=== PATIENT | female | born 2000 | race Hispanic/Latino ===

== ENCOUNTER 2024-05-19 12:05 | Inpatient (IN) | payer OTHER ==
[~2024-05-19] VITALS: Ht 154.9 cm; Wt 68.9 kg
--- NOTE | ~2024-05-19 | OR ---
[facility] [address] [place], [place] [address] Draft DATE OF OPERATION: 05/20/2024 SURGEON: Siomara Varghese MD TRACTOR OPERATOR: Edgar PREOPERATIVE DIAGNOSIS: Term , previous section. Risks reducing salpingectomy desired. POSTOPERATIVE DIAGNOSIS: Term , previous section. Risks reducing salpingectomy desired. PROCEDURE: Repeat section with lower segment transverse uterine incision with bilateral salpingectomy. ANESTHESIA: Spinal. ESTIMATED BLOOD LOSS: 600 mL. DRAINS: Hernandez catheter. INDICATIONS AND FINDINGS: The patient is a 24-year-old female 3, para 1, SAB 1, who was admitted at 39 weeks for repeat section. She desired risk reducing salpingectomy and understood this will make her permanently sterile. At the time of surgery, a little boy was delivered via lower segment transverse uterine incision with Apgars of 9 and 9 and weight of 6 pounds 14 ounces. He was in the LOT position. Uterus, tubes, ovaries, and placenta were otherwise normal. DESCRIPTION OF PROCEDURE: The patient was prepped and draped in the supine position. An incision was made through the prior scar and carried down through the fascia. The incision was extended laterally. The inferior and superior fascial flaps were then created. The peritoneum was opened sharply and the incision extended bluntly. The Hari retractor was placed. The uterine incision was made at the upper aspect of the peritoneal reflection. The PATIENT NAME: BARI SADLER OPERATIVE REPORT DATE OF : 00 REPORT #: [id number] PHYSICIAN: SIOMARA VARGHESE MD PCP: NO PRIMARY CARE PHYSICIAN REPORT IS CONFIDENTIAL AND NOT TO BE RELEASED WITHOUT AUTHORIZATION [facility] [address] [place], [place] [address] Draft incision was extended bluntly. Artificial rupture of membranes was done with clear fluid seen. The baby was delivered with the above findings and handed out to the pediatric staff in attendance. The placenta was expressed and appeared normal. The uterus was explored with a lap tape assuring no remaining fragments. The edges of the incision were identified and the uterus was closed in 2 layers using 0 Monocryl. The first layer was a running locking stitch and the 2nd was a vertical imbricating stitch. An additional suture was required near the patient's right angle for control of bleeding. This incision did appear to be hemostatic. Pressure was applied to this area and the patient's right tube was identified and grasped with [place] clamps. Using the hand-held LigaSure device, the mesosalpinx was serially coagulated and divided from the fimbriated end to the cornu and excised. The same procedure was carried out on the patient's left side. Inspection of these areas showed good hemostasis. The incision was again visualized and good hemostasis was noted. The Hari was removed and the peritoneum identified. The peritoneum was closed with a running suture of 3-0 Vicryl. The muscles were brought together with interrupted sutures of 0 Vicryl. Bleeding points on the fascia and muscles were controlled with cautery. Two sutures of 0 chromic were required for control of bleeding as well. This layer was irrigated, inspected and good hemostasis was noted. Because of the extensive raw area, however, Js was placed over the incision over the muscles to aid in hemostasis. The fascia was then closed from each angle to the midline with a running suture of 0 Vicryl. The subcu space was irrigated and the bleeding points controlled with cautery. Remaining Js was placed in this layer. The subcu was reapproximated with a running suture of 3-0 Vicryl. The skin was closed with jeannette. All sponge and needle counts were correct. She tolerated the procedure well and was taken to the recovery room in good condition. Siomara Varghese MD PJW/MODL /[id number] Copies: ~ PATIENT NAME: KLEVER HAYWOODBARI RIOS OPERATIVE REPORT DATE OF : 00 REPORT #: [id number] PHYSICIAN: SIOMARA VARGHESE MD PCP: NO PRIMARY CARE PHYSICIAN REPORT IS CONFIDENTIAL AND NOT TO BE RELEASED WITHOUT AUTHORIZATION
[2024-05-20] MEDS ORDERED: LACTATED RINGER'S 1,000 ML IV SCH ×2 (05:30→08:37)
[2024-05-20] MEDS ORDERED: LACTATED RINGER'S 2,000 ML IV PRN (05:30)
[2024-05-20 06:08] VITALS: BP 131/91
[2024-05-20] MEDS ORDERED: LACTATED RINGER'S 1,000 ML IV PRN (06:30)
[2024-05-20] MEDS ORDERED: SOD+POT BICARB/CITRIC ACID 2 EA TABLET.EFF PO ONE (06:30)
[2024-05-20 06:38] LABS: HEMATOCRIT 30.9 % (35.0-50.0); HEMOGLOBIN 10.1 g/dL (12.0-18.0); MCH 26.3 (27-36); MCHC 32.6 g/dl (30-36); MCV 80.7 fl (81-99); RBC 3.83 M/ul (4.3-5.7); RDW 15.5 (10.5-15.0)
[2024-05-20] MEDS ORDERED: MORPHINE SULFATE 1 MG/ML VIAL ONE (06:38)
[2024-05-20] MEDS ORDERED: fentaNYL citrate 100 MCG/2 ML VIAL ONE (06:38)
[2024-05-20] MEDS ORDERED: ondansetron HCL 4 MG/2 ML VIAL ONE (06:38)
[2024-05-20] MEDS ORDERED: BUPIVACAINE 0.75% IN DEXTROSE 2 ML AMP ONE (06:38)
[2024-05-20] MEDS ORDERED: LIDOCAINE HCL 2% 5 ML SDV ONE (06:38)
[2024-05-20] MEDS ORDERED: OXYTOCIN 10 UNITS/ML VIAL ONE ×3 (06:38→08:17)
[2024-05-20] MEDS ORDERED: CEFAZOLIN SODIUM 2 GM/20 ML SYR ONE (07:11)
[2024-05-20 07:12] LABS: ABO O; ANTIBODY SCREEN NEGATIVE; RH POSITIVE
[2024-05-20] MEDS ORDERED: DEXAMETHASONE SOD PHOS 4 MG/ML VIAL ONE ×2 (07:32)
[2024-05-20] MEDS ORDERED: Ropivacaine HCl 0.5% 30 ML VIAL ONE (07:32)
[2024-05-20] MEDS ORDERED: LACTATED RINGER'S 1,000 ML IV ONE ×2 (07:33→08:19)
[2024-05-20] MEDS ORDERED: SODIUM CHLORIDE 0.9% 20 ML IV ONE (07:33)
[2024-05-20] MEDS ORDERED: HYDROmorphone HCL 1 MG/ML SYR IV PRN (07:45)
[2024-05-20] MEDS ORDERED: ondansetron HCL 4 MG/2 ML VIAL IV PRN ×2 (07:45→08:45)
[2024-05-20] MEDS ORDERED: KETOROLAC TROMETHAMINE 30 MG/ML VIAL IV PRN (07:45)
[2024-05-20] MEDS ORDERED: PROCHLORPERAZINE EDISYLATE 10 MG/2 ML VIAL IV PRN ×2 (07:45→08:45)
[2024-05-20] MEDS ORDERED: diphenhydrAMINE HCL 50 MG/ML VIAL IV PRN (07:45)
[2024-05-20] MEDS ORDERED: NALOXONE HCL 0.4 MG SYR IV PRN (07:45)
[2024-05-20] MEDS ORDERED: ACETAMINOPHEN 1,000 MG/100 ML VIAL ONE (07:57)
[2024-05-20] MEDS ORDERED: SCOPOLAMINE 1 MG/3 DAYS PATCH 1 EACH TDSY ONE (08:13)
[2024-05-20] MEDS ORDERED: diphenhydrAMINE HCL 50 MG/ML VIAL ONE (08:21)
[2024-05-20] MEDS ORDERED: OXYCODONE HCL 5 MG TAB PO PRN (08:45)
[2024-05-20] MEDS ORDERED: METOCLOPRAMIDE HCL 10 MG/2 ML SDV IV PRN (08:45)
[2024-05-20] MEDS ORDERED: KETOROLAC TROMETHAMINE 30 MG/ML VIAL IV SCH (08:45)
[2024-05-20] MEDS ORDERED: PROMETHAZINE HCL 25 MG TAB PO PRN (08:45)
[2024-05-20] MEDS ORDERED: bisacodyL 10 MG SUPP PR PRN (08:45)
[2024-05-20] MEDS ORDERED: OXYTOCIN/0.9 % SODIUM CHLORIDE 500 ML IV SCH (08:45)
[2024-05-20] MEDS ORDERED: PROMETHAZINE HCL 25 MG SUPP PR PRN (08:45)
[2024-05-20] MEDS ORDERED: SENNOSIDES/DOCUSATE 1 EA TAB PO SCH (09:00)
[2024-05-20 09:27] VITALS: BP 120/80
[2024-05-20 10:38] LABS: AMPHETAMINES, URINE NEGATIVE (NEGATIVE); BARBITURATES, URINE NEGATIVE (NEGATIVE); BENZODIAZEPINE, URINE NEGATIVE (NEGATIVE); BUPRENORPHINE, URINE NEGATIVE (NEGATIVE); CANNABINOID, URINE NEGATIVE (NEGATIVE); COCAINE, URINE NEGATIVE (NEGATIVE); ECSTASY, URINE NEGATIVE (NEGATIVE); FENTANYL, URINE NEGATIVE (NEGATIVE); METHADONE, URINE NEGATIVE (NEGATIVE); OPIATES, URINE NEGATIVE (NEGATIVE); OXYCODONE, URINE NEGATIVE (NEGATIVE); PHENCYCLIDINE, URINE NEGATIVE (NEGATIVE)
[2024-05-20] MEDS ORDERED: SIMETHICONE 125 MG TABLET CHEWABLE PO SCH (11:00)
[2024-05-20] MEDS ORDERED: ACETAMINOPHEN 500 MG TAB PO SCH (14:00)
--- NOTE | 2024-05-20 15:36 | NUR ---
05/20/24 1536 Diandra Wheeler 0850-PT ARRIVED TO [facility] ROOM 105 VIA BED, ON RA, AAO AND ABLE TO MAKE HER NEEDS KNOWN. PT DOES REPORT DROWSY FEELING. PT SIG OTHER AND SON IN ROOM UPON ARRIVAL. SATS STABLE AT 94% OR GREATER ON RA. RR APPEARS EVEN AND UNLABORED. 0855-FUNDAL CHECK COMPLETED. PT DENIES PAIN OR NAUSEA WHEN ASKED. PT WITH SCOPALAMIN PATCH IN PLACE BEHIND R EAR. 0900-SPINAL LEVEL CHECKED AND NOTED TO BE AT T6. PT WITH SOME GENERALIZED ITCHING, BUT REPORTS DECREASING. PT RECEIVED BENADRYL IN OR PER LIFE SKILLS COACH. PT WAS EXPLAINED TO THAT ITCHING IS LIKELY A SIDE EFFECT OF DURAMORPH USED IN EPIDURAL. PT VERBALIZED UNDERSTANDING. PT DOES NOT HAVE RASH OR URTICARIA PRESENT WITH THE ITCHING. 09-C RN IN ROOM AND ASKING IF PT WOULD LIKE TO HOLD HER BABY. PT DECLINED, REPORTING SHE WAS TOO TIRED. 0913-PT NOTED TO EASILY FALL ASLEEP AND IS SNORING AT THIS TIME. PULSE DECREASES INTO MID TO LOW 40'S AT TIMES. AND THEN BACK INTO MID TO UPPER 50'S. PT AROUSED AND DENIES CHEST PX, SOB, OR DIZZINESS. PULSE INCREASES INTO MID TO UPPER 50'S WHEN PT IS AWAKE. SATS STABLE ON RA ABOVE 94%. RR REMAINS EVEN AND UNLABORED. 0917-EDUARDO DRAINED OF 625ML OF PALE, CLR, YELLOW URINE. 0925-VS PER PTS BASELINE. SPINAL REMAINS AT T6, PT UNABLE TO MOVE LEGS OR WIGGLE TOES AT THIS TIME. FUNDAL CHECKS UNREMARKABLE. 09-REPORT GIVEN TO [facility] RN. PTS SIG OTHER AND BABY REMAIN IN ROOM WITH PT. CALL LIGHT WITHIN REACH. BILAT SIDERAILS IN PLACE. BED INLOW POSITION WITH WHEELS LOCKED.
[2024-05-21] MEDS ORDERED: LACTATED RINGER'S 1,000 ML IV SCH (05:00)
[2024-05-21 05:37] LABS: HEMATOCRIT 28.2 % (35.0-50.0); HEMOGLOBIN 9.1 g/dL (12.0-18.0); MCH 26.3 (27-36); MCHC 32.2 g/dl (30-36); MCV 81.8 fl (81-99); RBC 3.44 M/ul (4.3-5.7); RDW 15.3 (10.5-15.0)
[2024-05-21] MEDS ORDERED: SOD+POT BICARB/CITRIC ACID 2 EA TABLET.EFF PO SCH (07:00)
[2024-05-21] MEDS ORDERED: CEFAZOLIN SODIUM 2 GM/20 ML SYR IV SCH (07:00)
--- NOTE | 2024-05-21 09:01 | PR ---
[facility] [address] [facility] [place] [facility] [place], [place] [address] Signed PP Progress Notes Datetime Report Generated by CPN: 05/21/2024 09:01 SUBJECTIVE: [id number] Pain: Within Normal Limits Nausea/Vomiting: Denies Flatus: No Vital Signs: [id number] Vital Signs: Reviewed; Within Normal Limits EXAM: Ongoing Cardiovascular: Normal Respiratory: Normal Abdomen/Uterus: Abnormal Lochia: Normal Vulva/Perineum: Not Done Breasts: Not Done CVA Tenderness: Not Done Extremities: Normal Incision: Normal Progress: Abnormal Exam Comments: Abdomen with active BS. Fundus firm, NT @ U-1. H/H 9.1/28.2, WBC 15.7, plat 200k IMPRESSION/PLAN/PROCEDURES: [id number] Impression: Normal Progression Other Plans: ambulate, shower Progress Notes: Doing well. Will increase activity. Prob d/c in am. Signing Physician: Siomara Varghese MD Copies: ~ *Electronically Signed* 05/21/24900 SIOMARA VARGHESE MD PATIENT NAME: BARI SADLER PROGRESS NOTE DATE OF : 00 PHYSICIAN: SIOMARA VARGHESE MD RPT #: [id number] REPORT IS CONFIDENTIAL AND NOT TO BE RELEASED WITHOUT AUTHORIZATION
[2024-05-21] MEDS ORDERED: IBUPROFEN 800 MG TAB PO SCH (10:00)
--- NOTE | 2024-05-22 11:04 | PR ---
[facility] [address] [place], [place] [address] Signed PP Progress Notes Datetime Report Generated by BRIGHT: 05/22/2024 11:04 SUBJECTIVE: [id number] Pain: Within Normal Limits Nausea/Vomiting: Denies Flatus: Yes Bowel Movement: Yes Vital Signs: [id number] Vital Signs: Reviewed; Within Normal Limits EXAM: Ongoing Cardiovascular: Not Done Respiratory: Not Done Abdomen/Uterus: Normal Lochia: Normal Vulva/Perineum: Not Done Breasts: Not Done CVA Tenderness: Not Done Extremities: Normal Incision: Normal Progress: Normal Exam Comments: Abdomen with active BS. Fundus firm, NT @ U-1. H/H 9.1/28.2, WBC 15.7, plat 200k IMPRESSION/PLAN/PROCEDURES: [id number] Impression: Normal Progression Plan: Remove Wallace; Discharge Other Plans: ambulate, shower Procedures: None Progress Notes: S: 24 yo s/p RLTCS with bilateral salpingectomy. POD#3. Doing well. Denies REY, CP, SOB, F/C, N/V, RUQ pain, changes in vision, vaginal discharge. Tolerating regular diet, ambulating, voiding on own, pain controlled. O: AFVSS Abd: Soft, appropriately tender. Fundus firm and one finger breadth below umbilicus. Incision C/D/I and well healing without erythema or drainage. Musc: GUTIERREZ. No C/C/E. A/P: 24 yo s/p RLTCS with bilateral salpingectomy. POD#2. Doing well. Meeting all hospital milestones. Will discharge home today and remove jeannette prior to discharge. *Electronically Signed* 05/22/24 1104 KIRA HERNÁNDEZ MD PATIENT NAME: KLEVER URIOSTEGUIDONNAMELLY PROGRESS NOTE DATE OF : 00 PHYSICIAN: KIRA HERNÁNDEZ MD RPT #: [id number] REPORT IS CONFIDENTIAL AND NOT TO BE RELEASED WITHOUT AUTHORIZATION [address] [address] Signed Signing Physician: Kira Hernández MD Copies: ~ *Electronically Signed* 05/22/241103 KIRA HERNÁNDEZ MD PATIENT NAME: KLEVER URIOSTEGUIBARI PROGRESS NOTE DATE OF : 00 PHYSICIAN: KIRA HERNÁNDEZ MD RPT #: [id number] REPORT IS CONFIDENTIAL AND NOT TO BE RELEASED WITHOUT AUTHORIZATION
--- NOTE | 2024-05-24 14:54 | PATH ---
[facility] [address] [place], [place] [address] Signed SPECIMEN(S): A FALLOPIAN TUBES, BILATERAL SPECIMEN SOURCE: A. FALLOPIAN TUBES, BILATERAL CLINICAL HISTORY: Repeat . FINAL PATHOLOGIC DIAGNOSIS: Bilateral fallopian tubes: - Two segments of benign fimbriated oviduct. JVR:keiry MICROSCOPIC EXAMINATION: Histologic sections of all submitted blocks are examined by light microscopy. These findings, together with the gross examination, support the pathologic diagnosis. GROSS DESCRIPTION: The specimen, labeled and designated "Luis Saez, bilateral fallopian tubes," is received in formalin and consists of two red-brown edematous fimbriated fallopian tube segments (8.2 cm in length and ranging in diameter from 0.5 to 1.5 cm, and 9.5 cm in length and ranging in diameter from 0.5 to 1.3 cm). Both segments contain paratubal cysts (0.3 to 0.5 cm in greatest dimension). One of the segments is arbitrarily inked blue. Both segments are serially sectioned to reveal red-brown to levine soft cut surfaces. Trust Officer sections including the fimbriae entirely are submitted in cassette (A1-A2). VB (under the direct supervision of a pathologist) The Gross Description was prepared using a voice recognition system. The report was reviewed for accuracy; however, sound-alike word errors, addition and/or deletions may occur. If there is any question about this report, please contact Client Services. PERFORMING LABORATORY: Technical component was performed by [employer], [address] [place] [id number] (CLIA# [id number]). Professional interpretation was performed by [facility], [address] [place] [id number] (CLIA#: [id number]). PATIENT NAME: BARI SADLER PATHOLOGY DATE OF : 00 REPORT #: [id number] PHYSICIAN: [facility] PCP: NO PRIMARY CARE PHYSICIAN REPORT IS CONFIDENTIAL AND NOT TO BE RELEASED WITHOUT AUTHORIZATION [address] [place] [address] Signed Diagnostician: Dudley Wray MD Pathologist Electronically Signed 05/24/2024 Copies: ~ [facility] DATE OF : 00 REPORT #: [id number] PHYSICIAN: [facility] PCP: NO PRIMARY CARE PHYSICIAN REPORT IS CONFIDENTIAL AND NOT TO BE RELEASED WITHOUT AUTHORIZATION
== END 2024-05-22 12:48 | disposition home or self-care (01) | DRG 785 ==
LOC: FBC 05-20 05:02
PROVIDERS: Obstetrics & Gynecology; ADMIT Obstetrics & Gynecology; ATTEND Obstetrics & Gynecology
PROC: 10D00Z1 Extraction of Products of Conception, Low, Open Approach (ICD-10-PCS; principal; 2024-05-20 07:30)
PROC: 0UB70ZZ Excision of Bilateral Fallopian Tubes, Open Approach (ICD-10-PCS; 2024-05-20 07:30)
DX: O34.211 Maternal care for low transverse scar from previous cesarean delivery (principal); O69.81X0 Labor and delivery complicated by cord around neck, without compression, not applicable or unspecified; Z3A.39 39 weeks gestation of pregnancy; Z37.0 Single live birth; Z30.2 Encounter for sterilization
CPT/HCPCS: 01961; 36415; 76942; 80307; 85027; 86850; 86900; 86901; 88302; A9270; J0131; J0690; J1100; J1200; J1885; J2001; J2274; J2405; J2590; J2795; J3010; J7121